=== PATIENT | male | born 1985 | race Caucasian/White ===

== ENCOUNTER 2024-07-30 18:35 | Emergency (ER) | payer MEDICAID ==
[~2024-07-30] VITALS: Ht 185.4 cm; Wt 118.0 kg
[2024-07-30 18:43] VITALS: O2SAT 99
[2024-07-30] MEDS ORDERED: TETANUS, DIPHTHERIA, PERTUSSIS VAC/PF 0.5ML (>10YR OLD) IM ONE (19:30)
[2024-07-30] MEDS: ACETAMINOPHEN 325MG TABLET PO ONE (20:34)
[2024-07-30] MEDS: LIDOCAINE HCL/PF 1% 10 MG/ML 5ML VIAL INFIL ONE (21:28)
[2024-07-30] MEDS: BACITRACIN ZINC OINT UDPKT TOP ONE (21:28)
[2024-07-30] MEDS: TETANUS, DIPHTHERIA, PERTUSSIS VAC/PF 0.5ML (>10YR OLD) IM ONE (21:59)
[2024-07-30 22:11] VITALS: BP 136/74; PULSE 86; RESP 18; TEMP 36.72516; O2SAT 99
== END 2024-07-30 22:12 | disposition home or self-care (01) ==
LOC: ER 18:35
DX: S61.215A Laceration without foreign body of left ring finger without damage to nail, initial encounter (principal); X58.XXXA Exposure to other specified factors, initial encounter; Y93.89 Activity, other specified; Y92.89 Other specified places as the place of occurrence of the external cause; Y99.8 Other external cause status
CPT/HCPCS: 99283; 73140; 90715; 12001; 90471; J3490

== ENCOUNTER 2024-10-29 08:02 | Emergency (ER) | payer BC ==
[~2024-10-29] VITALS: Ht 172.7 cm; Wt 90.7 kg
[2024-10-29 08:10] VITALS: O2SAT 100
[2024-10-29] MEDS: CEFTRIAXONE SODIUM 1G VIAL IM ONE (09:36)
[2024-10-29] MEDS: DOXYCYCLINE HYCLATE 100MG CAPSULE PO ONE (09:36)
[2024-10-29] MEDS ORDERED: NEOM28OI53 TOP (09:52)
[2024-10-29 10:27] VITALS: BP 128/73; PULSE 67; RESP 16; TEMP 36.83628; O2SAT 100
== END 2024-10-29 10:31 | disposition home or self-care (01) ==
LOC: EDBD 08:24 → ER 08:24
DX: T21.06XA Burn of unspecified degree of male genital region, initial encounter (principal); X58.XXXA Exposure to other specified factors, initial encounter; Y93.89 Activity, other specified; Y92.89 Other specified places as the place of occurrence of the external cause; Y99.8 Other external cause status
CPT/HCPCS: 99282